=== PATIENT | female | born 1940 | race Caucasian/White ===

== ENCOUNTER → 2017-05-07 | Outpatient (CLI) | payer OTHER, MEDICARE | LOC: BHFA 11:15 | PROVIDERS: ATTEND Internal Medicine Interventional Cardiology | DX: I25.10 Atherosclerotic heart disease of native coronary artery without angina pectoris (principal); I10 Essential (primary) hypertension; I47.1 Supraventricular tachycardia; I49.3 Ventricular premature depolarization; R00.2 Palpitations ==

== ENCOUNTER → 2017-05-10 | Outpatient (CLI) | payer OTHER, MEDICARE | LOC: BHFA 11:00 | PROVIDERS: ATTEND Internal Medicine Interventional Cardiology | DX: I25.10 Atherosclerotic heart disease of native coronary artery without angina pectoris (principal); I47.1 Supraventricular tachycardia; I49.3 Ventricular premature depolarization ==

== ENCOUNTER → 2017-07-30 | Outpatient (CLI) | payer OTHER, MEDICARE | LOC: BHFA 10:00 | PROVIDERS: ATTEND Internal Medicine Cardiovascular Disease | DX: R00.2 Palpitations (principal); I25.10 Atherosclerotic heart disease of native coronary artery without angina pectoris; I49.9 Cardiac arrhythmia, unspecified ==

== ENCOUNTER 2017-10-04 18:58 | Emergency (ER) | payer OTHER, MEDICARE ==
[2017-10-04] MEDS ORDERED: NS 1,000 ML IV ONE ×2 (19:28→20:20)
[2017-10-04] MEDS ORDERED: ACETAMINOPHEN 500 MG TAB PO ONE (19:28)
[2017-10-04] MEDS ORDERED: IBUPROFEN 600 MG TAB PO ONE (19:28)
[2017-10-04 19:49] LABS: PLATELET COUNT 167 10^3/uL (150-400)
[2017-10-04 19:59] LABS: INR 1.12 (0.83-1.16); PROTIME(PATIENT) 14.3 SEC (12.0-15.0)
[2017-10-04] MEDS ORDERED: OSELTAMIVIR PHOSPHATE 75 MG CAP PO ONE (20:09)
--- NOTE | 2017-10-04 20:13 | EDPHY ---
H & P Stated Complaint: + INFLUENZA A/HAS FEVER Time Seen by Provider: 10/04/17 19:19 HPI/ROS: CHIEF COMPLAINT: Influenza A, fever HISTORY OF PRESENT ILLNESS: This is a 77-year-old female who reports that 2 days ago she developed a dry throat, followed by a sore throat. Patient then developed nausea, vomiting last night, and today reports significant generalized body aches, severe headache, cough, and fever. Her reports she slept about 14 hours today. Patient was seen at [facility] urgent care and was diagnosed with influenza a. patient reports she had temperature of a 102.6degrees what the [facility]. She was referred to the emergency department for further evaluation and treatment. Patient denies any chest pain or shortness of breath. No diarrhea. REVIEW OF SYSTEMS: Aside from elements discussed in the HPI, a comprehensive 10-point review of systems was reviewed and is negative. PAST MEDICAL HISTORY: Hypertension, abnormal EKG. SOCIAL HISTORY: Here with her . Nonsmoker. VITAL SIGNS Reviewed by me. Temperature 38.7degrees, heart rate 92, respiratory rate 18, O2 sat 92% GENERAL: Well-developed, well-nourished, complaining of headache and body aches. HEENT: Atraumatic. Eyes: No icterus, no injection. Mouth: Posterior erythema , slightly dry mucous membranes. m Neck: supple with no adenopathy. LUNGS: Clear to auscultation bilaterally, no wheezes, rhonchi or rales. CARDIAC: Regular rate and rhythm, no rubs, murmurs or gallops. ABDOMEN: Soft, nontender, nondistended, bowel sounds normal. BACK: No CVA tenderness. EXTREMITIES: No trauma. No edema. Range of motion is normal throughout. NEURO: Alert and oriented, grossly nonfocal. SKIN: Warm and dry, no rash. PSYCHIATRIC: Normal mentation, no agitation. - Personal History Current Tetanus/Diphtheria Vaccine: Yes - Medical/Surgical History Hx Asthma: No Hx Chronic Respiratory Disease: No Hx Diabetes: No Hx Cardiac Disease: No Hx Renal Disease: No Hx Cirrhosis: No Hx Alcoholism: No Hx HIV/AIDS: No Hx Splenectomy or Spleen Trauma: No Other PMH: HTN/ "WEIRD EKG" - Social History Smoking Status: Never smoked Constitutional: Initial Vital Signs Temperature (C) 38.7 C H 10/04/17 19:01 Heart Rate 92 10/04/17 19:01 Respiratory Rate 18 10/04/17 19:01 Blood Pressure 146/63 H 10/04/17 19:01 O2 Sat (%) 92 10/04/17 19:01 O2 Delivery Mode Room Air O2 (L/minute) 2 Allergies/Adverse Reactions: Calcium Channel Blocking Agent Dilt Allergy (Verified 10/04/17 19:00) Penicillins Allergy (Verified 10/04/17 19:00) Sulfa (Sulfonamide Antibiotics) Allergy (Verified 10/04/17 19:00) Home Medications: Medication Instructions Recorded Cozaar 10/04/17 INDAPAMIDE 10/04/17 Oseltamivir Phosphate [Tamiflu 75 75 mg PO BID #10 cap 10/04/17 mg (*)] Synthroid 10/04/17 Medical Decision Making - Diagnostics Imaging Results: Imaging Impressions Chest X-Ray 10/04/17 19:28 Impression: Trace bibasilar atelectasis. No focal consolidation to suggest pneumonia. Xray: Chest x-ray was obtained. I viewed the images myself on the PACS system. My interpretation of the images is: No definitive infiltrate. The radiology interpretation is: Pending. I discussed the results with the patient. Imaging: I viewed and interpreted images myself ED Course/Re-evaluation: 77-year-old female with recently diagnosed influenza a presents for further evaluation. Patient had a IV placed. She received 1 L normal saline, Tylenol and ibuprofen for fever, body aches, and headache, and screening tests for sepsis were performed. Sepsis Evaluation Note: The patient presents to the ED with potential infection identified as influenza a. The patient did have evidence of sepsis with temperature greater than 38 degree Celsius, heart rate greater than 90. Patient did not have evidence of severe sepsis. Renal functions, lactic acid, bilirubin, platelets, coagulation studies were normal. Patient received 1st dose of Tamiflu in the emergency department. Patient was reexamined following 2 L of normal saline, ibuprofen, Tamiflu. She reports feeling significantly improved. She has no shortness of breath. Occasional cough. No nausea or vomiting. Body aches and headache are improved. She and her are comfortable with plan for discharge with supportive care at home. Please see the discharge instructions Differential Diagnosis: Differential diagnosis for fever in this patient was considered including but not limited to pneumonia, septicemia, urinary tract infection, viral syndrome, and influenza. - Data Points Laboratory Results: Laboratory Results 10/04/17 17:40 10/04/17 17:40 10/04/17 10/04/17 10/04/17 17:40 17:40 17:40 WBC 4.95 10^3/uL 10^3/uL (3.80-9.50) RBC 4.77 10^6/uL 10^6/uL (4.18-5.33) Hgb 15.4 g/dL g/dL (12.6-16.3) Hct 43.9 % % (38.0-47.0) MCV 92.0 fL fL (81.5-99.8) MCH 32.3 pg pg (27.9-34.1) MCHC 35.1 g/dL g/dL (32.4-36.7) RDW 12.8 % % (11.5-15.2) Plt Count 167 10^3/uL 10^3/uL (150-400) MPV 10.2 fL fL (8.7-11.7) Neut % (Auto) 77.8 % H % (39.3-74.2) Lymph % (Auto) 8.9 % L % (15.0-45.0) [place] % (Auto) 12.5 % % (4.5-13.0) Eos % (Auto) 0.0 % L % (0.6-7.6) Baso % (Auto) 0.4 % % (0.3-1.7) Nucleat RBC Rel Count 0.0 % % (0.0-0.2) Absolute Neuts (auto) 3.85 10^3/uL 10^3/uL (1.70-6.50) Absolute Lymphs (auto) 0.44 10^3/uL L 10^3/uL (1.00-3.00) Absolute Monos (auto) 0.62 10^3/uL 10^3/uL (0.30-0.80) Absolute Eos (auto) 0.00 10^3/uL L 10^3/uL (0.03-0.40) Absolute Basos (auto) 0.02 10^3/uL 10^3/uL (0.02-0.10) Absolute Nucleated RBC 0.00 10^3/uL 10^3/uL (0-0.01) Immature Gran % 0.4 % % (0.0-1.1) Immature Gran # 0.02 10^3/uL 10^3/uL (0.00-0.10) PT 14.3 SEC SEC (12.0-15.0) INR 1.12 (0.83-1.16) APTT 29.6 SEC SEC (23.0-38.0) VBG Lactic Acid 1.3 mmol/L mmol/L (0.7-2.1) Sodium Potassium Chloride Carbon Dioxide Anion Gap BUN Creatinine Estimated GFR Glucose Calcium Total Bilirubin 10/04/17 17:40 WBC RBC Hgb Hct MCV MCH MCHC RDW Plt Count MPV Neut % (Auto) Lymph % (Auto) [place] % (Auto) Eos % (Auto) Baso % (Auto) Nucleat RBC Rel Count Absolute Neuts (auto) Absolute Lymphs (auto) Absolute Monos (auto) Absolute Eos (auto) Absolute Basos (auto) Absolute Nucleated RBC Immature Gran % Immature Gran # PT INR APTT VBG Lactic Acid Sodium 137 mEq/L mEq/L (134-144) Potassium 3.0 mEq/L L mEq/L (3.5-5.2) Chloride 98 mEq/L mEq/L (97-110) Carbon Dioxide 28 mEq/l mEq/l (22-31) Anion Gap 11 mEq/L mEq/L (8-16) BUN 17 mg/dL mg/dL (7-23) Creatinine 1.0 mg/dL mg/dL (0.6-1.0) Estimated GFR 54 Glucose 104 mg/dL H mg/dL (70-100) Calcium 9.1 mg/dL mg/dL (8.5-10.4) Total Bilirubin 0.6 mg/dL mg/dL (0.1-1.4) Medications Given: Discontinued Medications Acetaminophen (Tylenol) 1,000 mg PO EDNOW ONE Stop: 10/04/17 19:29 Last Admin: 10/04/17 19:31 Dose: 1,000 mg Sodium Chloride (Ns) 1,000 mls @ 0 mls/hr IV ONCE ONE; Wide Open PRN Reason: Protocol Stop: 10/04/17 19:29 Last Admin: 11/06/17 19:37 Dose: 1,000 mls Sodium Chloride (Ns) 1,000 mls @ 0 mls/hr IV ONCE ONE PRN Reason: Wide Open Stop: 10/04/17 20:21 Last Admin: 10/04/17 20:23 Dose: 1,000 mls Ibuprofen (Motrin) 600 mg PO EDNOW ONE Stop: 10/04/17 19:29 Last Admin: 10/04/17 19:31 Dose: 600 mg Oseltamivir Phosphate (Tamiflu) 75 mg PO EDNOW ONE Stop: 10/04/17 20:10 Last Admin: 10/04/17 20:21 Dose: 75 mg Departure - Departure Disposition: Home, Routine, Self-Care Clinical Impression: Influenza A Fever Qualifiers: Fever type: unspecified Qualified Code(s): R50.9 - Fever, unspecified Condition: Good Instructions: Influenza (ED) Additional Instructions: Most important therapy is to get plenty of rest, drink plenty of fluid, control your fever and body aches with Tylenol and ibuprofen. Adult Pain & Fever Control: We recommend Acetaminophen (Tylenol) and Ibuprofen (Motrin,Advil) for pain and fever control. When fever is high or pain severe, both drugs can be used at the same time, but at different intervals. Please note the time differences. Your dose is: Acetaminophen 650-1000 mg every 4 to 6 hours Ibuprofen 600mg every 6-8 hours with food Please take the Tamiflu as directed. 75 mg by mouth 2 times a day for 5 days. Return to the emergency department or seek care if you're worsening despite the above measures, especially if you develop fevers which are difficult to control , extreme somnolence, severe shortness of breath or chest pain, or other concerns. Referrals: NONE *PRIMARY CARE P,. [Primary Care Provider] - As per Instructions Prescriptions: Oseltamivir Phosphate [Tamiflu 75 mg (*)] 75 mg PO BID #10 cap
[2017-10-04 21:36] VITALS: BP 118/55; PULSE 72; RESP 16; TEMP 99.7; O2SAT 92
== END 2017-10-04 21:34 | disposition home or self-care (01) ==
DX: J10.1 Influenza due to other identified influenza virus with other respiratory manifestations (principal); I10 Essential (primary) hypertension; E86.9 Volume depletion, unspecified

== ENCOUNTER → 2018-12-15 | Outpatient (CLI) | payer OTHER, MEDICARE ==
[~2018-12-15] MED LIST: IOPAMIDOL (ISOVUE 370) 100 ML BTL IV ONE
== END ==
LOC: FIMAGING 10:21
PROVIDERS: ATTEND Internal Medicine
DX: H53.2 Diplopia (principal); H57.12 Ocular pain, left eye
CPT/HCPCS: 70481; Q9967; 82565-PO